=== PATIENT | male | born 1985 | race Caucasian/White ===

== ENCOUNTER 2018-02-15 18:51 | Emergency (ER) | payer SELFPAY ==
[~2018-02-15] VITALS: Ht 185.4 cm; Wt 145.0 kg
[2018-02-15] MEDS ORDERED: BENZ1TAB10 PO (19:30)
[2018-02-15] MEDS ORDERED: PALI3 PO (19:30)
[2018-02-15 21:22] LABS: BASOPHILS % (AUTO) 0.6 % (0.0-2.0); EOSINOPHILS % (AUTO) 4.2 % (1.0-6.0); HEMOGLOBIN 13.9 g/dL (13.5-17.5); LYMPHOCYTES # (AUTO) 2.7 K/uL (1.0-4.8); LYMPHOCYTES % (AUTO) 42.3 % (22.0-44.0); MEAN CORPUSCULAR HEMOGLOBIN 29.9 pg (26.0-34.0); MEAN CORPUSCULAR HGB CONC 34.7 G/dL (31.0-37.0); MEAN CORPUSCULAR VOLUME 86 fL (80-100); MONOCYTES # (AUTO) 0.6 K/uL (0.1-1.0); MONOCYTES % (AUTO) 9.3 % (2.0-9.0); NEUTROPHILS # (AUTO) 2.8 K/uL (1.8-7.7); NEUTROPHILS % (AUTO) 43.6 % (40.0-70.0); PLATELET COUNT (AUTO) 229 K/uL (150-450); RED BLOOD CELL COUNT(AUTO) 4.64 MIL/uL (4.50-5.90); RED CELL DISTRIBUTION WIDTH 13.1 % (11.5-14.5)
[2018-02-15 21:23] LABS: APPEARANCE,URINE CLEAR (CLEAR); BILIRUBIN,URINE NEGATIVE (NEGATIVE); GLUCOSE, URINE (UA) NEGATIVE (NEGATIVE); KETONES,URINE TRACE mg/dL (NEGATIVE); LEUKOCYTE ESTERASE ,URINE NEGATIVE (NEGATIVE); NITRATE,URINE NEGATIVE (NEGATIVE); OCCULT BLOOD,URINE NEGATIVE (NEGATIVE); PROTEIN,URINE NEGATIVE (NEGATIVE)
[2018-02-15 21:29] LABS: AMPHET/METH SCREEN,URINE POSITIVE (NEGATIVE); BARBITURATE SCREEN, URINE NEGATIVE (NEGATIVE); BENZODIAZEPINES SCREEN,URINE NEGATIVE (NEGATIVE); CANNABINOID SCREEN,URINE POSITIVE (NEGATIVE); COCAINE SCREEN,URINE POSITIVE (NEGATIVE); METHADONE SCREEN, URINE NEGATIVE (NEGATIVE); OPIATE SCREEN,URINE NEGATIVE (NEGATIVE); PHENCYCLIDINE SCREEN,URINE NEGATIVE (NEGATIVE)
[2018-02-15 21:32] LABS: ANION GAP 7 mmol/L (8-16); CALCIUM, TOTAL 8.5 mg/dL (8.8-10.5); CARBON DIOXIDE 31 mmol/L (22-29); CHLORIDE 102 mmol/L (98-107); GLOMERULAR FILTR. RATE CALC > 60 mL/min (>60); GLUCOSE,RANDOM 94 mg/dL (70-110); POTASSIUM 3.6 mmol/L (3.5-5.1); SODIUM SERUM 140 mmol/L (136-145); UREA NITROGEN, BLOOD 13 mg/dL (7-18)
[2018-02-15 21:38] LABS: ALANINE AMINOTRANSFERASE 70 U/L (12-78); ALBUMIN 3.6 g/dL (3.4-5.0); ALKALINE PHOSPHATASE 61 U/L (46-116); ASPARTATE AMINOTRANSFERASE 58 U/L (15-37); BILIRUBIN,TOTAL 0.6 mg/dL (0.1-1.0); TOTAL PROTEIN, SERUM 6.9 g/dL (6.4-8.2)
[2018-02-15 22:15] VITALS: BP 139/69
[2018-02-15] MEDS ORDERED: PALIPERIDONE 3 MG ER TABLET PO ONE (22:30)
== END 2018-02-15 22:42 | disposition home or self-care (01) ==
LOC: EMS 18:53
DX: F20.9 Schizophrenia, unspecified (principal); F41.9 Anxiety disorder, unspecified; F17.210 Nicotine dependence, cigarettes, uncomplicated; F12.10 Cannabis abuse, uncomplicated; F15.10 Other stimulant abuse, uncomplicated; F14.10 Cocaine abuse, uncomplicated; Z79.899 Other long term (current) drug therapy
CPT/HCPCS: 36415; 74018; 80053; 80307; 81003; 85025; 99285; 99406; G0480

== ENCOUNTER 2018-02-21 16:10 | Inpatient (IN) | payer MEDICAID ==
[~2018-02-21] VITALS: Ht 188 cm; Wt 65.1 kg
[~2018-02-21 16:10] MED LIST: BENZ1TAB10 PO; PALI3 PO
[2018-02-21] MEDS ORDERED: PALIPERIDONE 3 MG ER TABLET PO ONE (18:45)
[2018-02-21] MEDS ORDERED: BENZTROPINE MESYLATE 1 MG TABLET PO ONE (18:45)
[2018-02-21 19:03] LABS: BASOPHILS % (AUTO) 0.8 % (0.0-2.0); EOSINOPHILS % (AUTO) 3.7 % (1.0-6.0); HEMATOCRIT 44.4 % (41-53); HEMOGLOBIN 15.5 g/dL (13.5-17.5); LYMPHOCYTES % (AUTO) 40.2 % (22.0-44.0); MEAN CORPUSCULAR HEMOGLOBIN 30.1 pg (26.0-34.0); MEAN CORPUSCULAR VOLUME 86 fL (80-100); MONOCYTES # (AUTO) 0.6 K/uL (0.1-1.0); MONOCYTES % (AUTO) 8.2 % (2.0-9.0); NEUTROPHILS # (AUTO) 3.5 K/uL (1.8-7.7); NEUTROPHILS % (AUTO) 47.1 % (40.0-70.0); PLATELET COUNT (AUTO) 297 K/uL (150-450); RED BLOOD CELL COUNT(AUTO) 5.15 MIL/uL (4.50-5.90); RED CELL DISTRIBUTION WIDTH 13.3 % (11.5-14.5)
[2018-02-21 19:20] LABS: AMPHET/METH SCREEN,URINE NEGATIVE (NEGATIVE); BARBITURATE SCREEN, URINE NEGATIVE (NEGATIVE); BENZODIAZEPINES SCREEN,URINE NEGATIVE (NEGATIVE); CANNABINOID SCREEN,URINE NEGATIVE (NEGATIVE); COCAINE SCREEN,URINE NEGATIVE (NEGATIVE); METHADONE SCREEN, URINE NEGATIVE (NEGATIVE); OPIATE SCREEN,URINE NEGATIVE (NEGATIVE)
[2018-02-21 19:21] LABS: ANION GAP 8 mmol/L (8-16); CARBON DIOXIDE 31 mmol/L (22-29); CHLORIDE 102 mmol/L (98-107); CREATININE 0.92 mg/dL (0.60-1.30); GLOMERULAR FILTR. RATE CALC > 60 mL/min (>60); GLUCOSE,RANDOM 104 mg/dL (70-110); POTASSIUM 3.8 mmol/L (3.5-5.1); SODIUM SERUM 141 mmol/L (136-145); UREA NITROGEN, BLOOD 13 mg/dL (7-18)
[2018-02-21 19:31] LABS: ALANINE AMINOTRANSFERASE 89 U/L (12-78); ALBUMIN 4.2 g/dL (3.4-5.0); ALKALINE PHOSPHATASE 58 U/L (46-116); ASPARTATE AMINOTRANSFERASE 50 U/L (15-37); BILIRUBIN,TOTAL 0.4 mg/dL (0.1-1.0); TOTAL PROTEIN, SERUM 7.8 g/dL (6.4-8.2)
[2018-02-21 19:37] LABS: PHENCYCLIDINE SCREEN,URINE NEGATIVE (NEGATIVE)
[2018-02-22 00:01] VITALS: BP 124/78
[2018-02-22] MEDS: ZOLPIDEM TARTRATE 10 MG TABLET PO PRN (00:11)
[2018-02-22] MEDS: LORazepam 2 MG TABLET PO PRN ×3 (00:11→15:59)
[2018-02-22] MEDS ORDERED: PNEUMOCOCCAL VACCINE POLYVALENT 0.5 ML VIAL [PPSV23] IM ONE (00:15)
[2018-02-22 08:09] LABS: CHOL/HDL RATIO 3.3 (4.2-7.3)
[2018-02-22 08:10] VITALS: BP 101/64
[2018-02-22] MEDS: NICOTINE 21 MG/24 HOUR PATCH TD SCH ×2 (09:00→12:54)
[2018-02-22] MEDS ORDERED: NICOTINE 14 MG/24 HOUR PATCH TD SCH (12:30)
[2018-02-22] MEDS ORDERED: IBUPROFEN 400 MG TABLET PO PRN (12:45)
[2018-02-22] MEDS ORDERED: DOCUSATE SODIUM 100 MG CAPSULE PO PRN (12:45)
[2018-02-22] MEDS ORDERED: GuaiFENesin/D-METHORPHAN [SUGAR-FREE] 200-20MG/10 ML SYRUP UDCUP PO PRN (12:45)
[2018-02-22] MEDS ORDERED: MAG HYDROX/AL HYDROX/SIMETH ES 30 ML SUSPENSION UDCUP PO PRN (12:45)
[2018-02-22] MEDS ORDERED: PETROLATUM,WHITE 71 GM JELLY TP PRN (12:45)
[2018-02-22] MEDS ORDERED: CloNIDine HCL 0.1 MG TABLET PO PRN (12:45)
[2018-02-22] MEDS ORDERED: ONDANSETRON HCL 4 MG TABLET PO PRN (12:45)
[2018-02-22] MEDS ORDERED: MAGNESIUM HYDROXIDE SUSPENSION 30 ML UDCUP PO PRN (12:45)
[2018-02-22] MEDS ORDERED: ACETAMINOPHEN 325 MG TABLET PO PRN (12:45)
[2018-02-22] MEDS ORDERED: LOPERAMIDE HCL 2 MG CAPSULE PO PRN (12:45)
[2018-02-22] MEDS ORDERED: ALBUTEROL SULFATE HFA 90 MCG/PUFF 8 GM INHALER IH PRN (12:45)
[2018-02-22] MEDS: VENLAFAXINE HCL 75 MG ER CAPSULE PO SCH (13:03)
[2018-02-22] MEDS: HALOPERIDOL 5 MG TABLET PO PRN (16:02)
[2018-02-22 16:10] VITALS: BP 117/65
[2018-02-23 01:18] VITALS: BP 118/69
[2018-02-23 08:16] VITALS: BP 120/60
[2018-02-23] MEDS: VENLAFAXINE HCL 75 MG ER CAPSULE PO SCH (08:39)
[2018-02-23] MEDS: NICOTINE 21 MG/24 HOUR PATCH TD SCH (08:39)
[2018-02-23] MEDS: LORazepam 2 MG TABLET PO PRN ×3 (08:41→17:09)
[2018-02-23] MEDS: HALOPERIDOL 5 MG TABLET PO PRN (11:19)
[2018-02-23 16:00] VITALS: BP 121/75
[2018-02-24 00:05] VITALS: BP 105/68
[2018-02-24] MEDS: LORazepam 2 MG TABLET PO PRN ×4 (00:09→19:12)
[2018-02-24] MEDS: ZOLPIDEM TARTRATE 10 MG TABLET PO PRN ×2 (00:09→21:24)
[2018-02-24 08:25] VITALS: BP 123/68
[2018-02-24] MEDS: NICOTINE 21 MG/24 HOUR PATCH TD SCH (09:01)
[2018-02-24] MEDS: ARIPiprazole 5 MG TABLET PO SCH (09:02)
[2018-02-24] MEDS: VENLAFAXINE HCL 150 MG ER CAPSULE PO SCH (09:02)
[2018-02-24 19:32] VITALS: BP 115/67
[2018-02-25 05:55] VITALS: BP 128/79
[2018-02-25] MEDS: NICOTINE 21 MG/24 HOUR PATCH TD SCH (08:14)
[2018-02-25] MEDS: LORazepam 2 MG TABLET PO PRN (08:14)
[2018-02-25] MEDS: ARIPiprazole 5 MG TABLET PO SCH (08:50)
[2018-02-25] MEDS: VENLAFAXINE HCL 150 MG ER CAPSULE PO SCH (08:50)
[2018-02-25 08:55] VITALS: BP 130/78
[2018-02-25] MEDS ORDERED: VENL-68 PO (12:29)
[2018-02-25] MEDS ORDERED: ARIP5TAB8 PO (12:29)
== END 2018-02-25 13:00 | disposition home or self-care (01) | DRG 751 ==
LOC: EMS 16:11 → B2S 21:47
PROVIDERS: ADMIT Psychiatry & Neurology Psychiatry; ATTEND Psychiatry & Neurology Psychiatry
DX: F33.2 Major depressive disorder, recurrent severe without psychotic features (principal); F14.20 Cocaine dependence, uncomplicated; R45.851 Suicidal ideations; F41.9 Anxiety disorder, unspecified; B19.20 Unspecified viral hepatitis C without hepatic coma; G47.00 Insomnia, unspecified; F17.200 Nicotine dependence, unspecified, uncomplicated; F12.90 Cannabis use, unspecified, uncomplicated; Z59.0 Homelessness
CPT/HCPCS: 90471; 90472; 90686; 90732; 99285; G0480

== ENCOUNTER 2018-03-24 10:48 | Inpatient (IN) | payer SELFPAY ==
[~2018-03-24] VITALS: Ht 188 cm; Wt 66.7 kg
[~2018-03-24 10:48] MED LIST changes: +ARIP5TAB8 PO; -BENZ1TAB10 PO; -PALI3 PO; +VENL-68 PO
[2018-03-24 12:17] VITALS: BP 120/77
[2018-03-24] MEDS ORDERED: HALOPERIDOL 5 MG TABLET PO PRN (13:30)
[2018-03-24] MEDS ORDERED: ZOLPIDEM TARTRATE 10 MG TABLET PO PRN (13:30)
[2018-03-24 15:14] VITALS: BP 142/83
[2018-03-24 17:02] VITALS: BP 117/73
[2018-03-24] MEDS ORDERED: LOPERAMIDE HCL 2 MG CAPSULE PO PRN (18:30)
[2018-03-24] MEDS ORDERED: MAG HYDROX/AL HYDROX/SIMETH ES 30 ML SUSPENSION UDCUP PO PRN (18:30)
[2018-03-24] MEDS ORDERED: DOCUSATE SODIUM 100 MG CAPSULE PO PRN (18:30)
[2018-03-24] MEDS ORDERED: ALBUTEROL SULFATE HFA 90 MCG/PUFF 8 GM INHALER IH PRN (18:30)
[2018-03-24] MEDS ORDERED: ACETAMINOPHEN 325 MG TABLET PO PRN (18:30)
[2018-03-24] MEDS ORDERED: GuaiFENesin/D-METHORPHAN [SUGAR-FREE] 200-20MG/10 ML SYRUP UDCUP PO PRN (18:30)
[2018-03-24] MEDS ORDERED: PETROLATUM,WHITE 71 GM JELLY TP PRN (18:30)
[2018-03-24] MEDS ORDERED: ONDANSETRON HCL 4 MG TABLET PO PRN (18:30)
[2018-03-24] MEDS ORDERED: MAGNESIUM HYDROXIDE SUSPENSION 30 ML UDCUP PO PRN (18:30)
[2018-03-24] MEDS ORDERED: CloNIDine HCL 0.1 MG TABLET PO PRN (18:30)
[2018-03-24] MEDS: LORazepam 2 MG TABLET PO PRN (18:34)
[2018-03-24] MEDS: IBUPROFEN 400 MG TABLET PO PRN (19:59)
[2018-03-25 06:17] VITALS: BP 114/74
[2018-03-25 08:00] VITALS: BP 120/69
[2018-03-25 08:33] LABS: BASOPHILS % (AUTO) 0.5 % (0.0-2.0); EOSINOPHILS % (AUTO) 6.3 % (1.0-6.0); HEMATOCRIT 39.1 % (41-53); HEMOGLOBIN 13.8 g/dL (13.5-17.5); LYMPHOCYTES # (AUTO) 2.3 K/uL (1.0-4.8); LYMPHOCYTES % (AUTO) 46.5 % (22.0-44.0); MEAN CORPUSCULAR HEMOGLOBIN 30.3 pg (26.0-34.0); MEAN CORPUSCULAR HGB CONC 35.3 G/dL (31.0-37.0); MEAN CORPUSCULAR VOLUME 86 fL (80-100); MONOCYTES # (AUTO) 0.6 K/uL (0.1-1.0); MONOCYTES % (AUTO) 12.1 % (2.0-9.0); NEUTROPHILS # (AUTO) 1.7 K/uL (1.8-7.7); NEUTROPHILS % (AUTO) 34.6 % (40.0-70.0); PLATELET COUNT (AUTO) 240 K/uL (150-450); RED BLOOD CELL COUNT(AUTO) 4.56 MIL/uL (4.50-5.90); RED CELL DISTRIBUTION WIDTH 13.4 % (11.5-14.5)
[2018-03-25] MEDS: ARIPiprazole 5 MG TABLET PO SCH (08:43)
[2018-03-25] MEDS: VENLAFAXINE HCL 150 MG ER CAPSULE PO SCH (08:43)
[2018-03-25 08:49] LABS: AMPHET/METH SCREEN,URINE POSITIVE (NEGATIVE); BARBITURATE SCREEN, URINE NEGATIVE (NEGATIVE); BENZODIAZEPINES SCREEN,URINE NEGATIVE (NEGATIVE); CANNABINOID SCREEN,URINE POSITIVE (NEGATIVE); COCAINE SCREEN,URINE NEGATIVE (NEGATIVE); METHADONE SCREEN, URINE NEGATIVE (NEGATIVE); OPIATE SCREEN,URINE NEGATIVE (NEGATIVE)
[2018-03-25 08:50] LABS: PHENCYCLIDINE SCREEN,URINE NEGATIVE (NEGATIVE)
[2018-03-25 08:53] LABS: BILIRUBIN,URINE NEGATIVE (NEGATIVE); GLUCOSE, URINE (UA) NEGATIVE (NEGATIVE); KETONES,URINE NEGATIVE (NEGATIVE); LEUKOCYTE ESTERASE ,URINE NEGATIVE (NEGATIVE); NITRATE,URINE NEGATIVE (NEGATIVE); OCCULT BLOOD,URINE NEGATIVE (NEGATIVE); PH,URINE 5.5 (5.0-8.0); PROTEIN,URINE NEGATIVE (NEGATIVE); UROBILINOGEN,URINE 0.2 mg/dL (<=1.0)
[2018-03-25 08:57] LABS: APPEARANCE,URINE HAZY (CLEAR)
[2018-03-25 08:58] LABS: HEMOGLOBIN A1C 5.5 % (4.5-6.2)
[2018-03-25 09:04] LABS: ALANINE AMINOTRANSFERASE 63 U/L (12-78); ALBUMIN 3.5 g/dL (3.4-5.0); ALKALINE PHOSPHATASE 53 U/L (46-116); ANION GAP 5 mmol/L (8-16); ASPARTATE AMINOTRANSFERASE 43 U/L (15-37); BILIRUBIN,TOTAL 0.5 mg/dL (0.1-1.0); CALCIUM, TOTAL 8.1 mg/dL (8.8-10.5); CARBON DIOXIDE 29 mmol/L (22-29); CHLORIDE 105 mmol/L (98-107); CHOL/HDL RATIO 2.9 (4.2-7.3); CHOLESTEROL 146 mg/dL (131-200); CREATININE 0.81 mg/dL (0.60-1.30); FREE T4 (FREE THYROXINE) 0.87 ng/dL (0.76-1.46); GLOMERULAR FILTR. RATE CALC > 60 mL/min (>60); GLUCOSE,RANDOM 85 mg/dL (70-110); HDL CHOLESTEROL 50 mg/dL (40-60); LDL CHOL (CALC.) 86 mg/dL (0-130); SODIUM SERUM 139 mmol/L (136-145); THYROID STIMULATING HORMONE 0.23 uIU/mL (0.36-3.74); TOTAL PROTEIN, SERUM 6.1 g/dL (6.4-8.2); TRIGLYCERIDES 50 mg/dL (15-150); UREA NITROGEN, BLOOD 14 mg/dL (7-18)
[2018-03-25] MEDS: LORazepam 2 MG TABLET PO PRN (13:15)
[2018-03-25 16:00] VITALS: BP 117/60
[2018-03-26 06:07] VITALS: BP 119/69
[2018-03-26] MEDS: LORazepam 2 MG TABLET PO PRN ×3 (06:55→17:18)
[2018-03-26 08:34] VITALS: BP 125/60
[2018-03-26] MEDS ORDERED: ARIPiprazole 5 MG TABLET PO SCH (09:00)
[2018-03-26] MEDS ORDERED: VENLAFAXINE HCL 150 MG ER CAPSULE PO SCH (09:00)
[2018-03-26] MEDS: VENLAFAXINE HCL 150 MG ER CAPSULE PO SCH (09:19)
[2018-03-26] MEDS: ARIPiprazole 5 MG TABLET PO SCH (09:19)
[2018-03-26 16:13] VITALS: BP 120/65
[2018-03-26] MEDS: MUPIROCIN CALCIUM 2% 22 GM OINTMENT NASAL SCH (17:21)
[2018-03-27 06:07] VITALS: BP 124/74
[2018-03-27] MEDS: VENLAFAXINE HCL 150 MG ER CAPSULE PO SCH (08:53)
[2018-03-27] MEDS: LORazepam 2 MG TABLET PO PRN ×3 (08:53→18:12)
[2018-03-27] MEDS: ARIPiprazole 5 MG TABLET PO SCH (08:53)
[2018-03-27] MEDS: MUPIROCIN CALCIUM 2% 22 GM OINTMENT NASAL SCH ×2 (08:55→16:05)
[2018-03-27 09:28] VITALS: BP 124/78
[2018-03-27 16:36] VITALS: BP 128/79
[2018-03-28 05:58] VITALS: BP 142/88
[2018-03-28] MEDS: LORazepam 2 MG TABLET PO PRN ×2 (06:01→11:13)
[2018-03-28 08:29] VITALS: BP 121/85
[2018-03-28] MEDS: ARIPiprazole 5 MG TABLET PO SCH (09:00)
[2018-03-28] MEDS: VENLAFAXINE HCL 150 MG ER CAPSULE PO SCH (09:00)
[2018-03-28] MEDS: NICOTINE 14 MG/24 HOUR PATCH TD PRN (11:18)
[2018-03-28] MEDS: MUPIROCIN CALCIUM 2% 22 GM OINTMENT NASAL SCH ×2 (11:28→16:06)
[2018-03-28 16:19] VITALS: BP 127/81
[2018-03-28] MEDS: IBUPROFEN 400 MG TABLET PO PRN (16:23)
[2018-03-29 00:30] VITALS: BP 127/67
[2018-03-29 08:16] VITALS: BP 134/81
[2018-03-29] MEDS: MUPIROCIN CALCIUM 2% 22 GM OINTMENT NASAL SCH ×2 (09:15→17:00)
[2018-03-29] MEDS: ARIPiprazole 5 MG TABLET PO SCH (09:15)
[2018-03-29] MEDS: VENLAFAXINE HCL 150 MG ER CAPSULE PO SCH (09:15)
[2018-03-29] MEDS: NICOTINE 14 MG/24 HOUR PATCH TD PRN (09:21)
[2018-03-29 12:15] VITALS: BP 122/79
[2018-03-29] MEDS: IBUPROFEN 400 MG TABLET PO PRN (12:15)
[2018-03-29] MEDS ORDERED: MUPI1OIN4 NS (14:49)
== END 2018-03-29 17:57 | disposition home or self-care (01) | DRG 885 ==
LOC: B2S 12:16
PROVIDERS: ADMIT Psychiatry & Neurology Psychiatry; ATTEND Psychiatry & Neurology Psychiatry
DX: F33.2 Major depressive disorder, recurrent severe without psychotic features (principal); R45.851 Suicidal ideations; F19.20 Other psychoactive substance dependence, uncomplicated; B18.2 Chronic viral hepatitis C; E05.90 Thyrotoxicosis, unspecified without thyrotoxic crisis or storm; E11.9 Type 2 diabetes mellitus without complications; E78.5 Hyperlipidemia, unspecified; F10.10 Alcohol abuse, uncomplicated; F12.90 Cannabis use, unspecified, uncomplicated; F17.200 Nicotine dependence, unspecified, uncomplicated; F41.9 Anxiety disorder, unspecified; I10 Essential (primary) hypertension; K59.00 Constipation, unspecified; F25.0 Schizoaffective disorder, bipolar type; Z71.41 Alcohol abuse counseling and surveillance of alcoholic; Z59.0 Homelessness; Z79.899 Other long term (current) drug therapy; Z79.84 Long term (current) use of oral hypoglycemic drugs
CPT/HCPCS: 80307; 83036; 84439; 84443; 87081